=== PATIENT | male | born 1980 | race Caucasian/White ===

== ENCOUNTER 2017-06-16 11:40 | Emergency (ER) | payer OTHER ==
[~2017-06-16] VITALS: Ht 175.3 cm; Wt 79.4 kg
[~2017-06-16 11:40] MED LIST: ACET500 PO; AMOX500 PO; AMOX875 PO; AZIT500 PO; CARB10OTL BOTHEARS; CEPH500 PO; CITA20 PO; CLOT10; CODACE30 PO; CRUTCH3 USE; CYCL10 PO; Cleocin HCl300 MG PO; Clindamycin HC150 MG PO; FLUC100 PO; FLUC150A PO; FLUC200 PO; HYDACE5; HYDACE5 PO; HYDHCL25 PO; IBUP200; IBUP600 PO; LIDO2L MM; META800 PO; METPRE4DP PO; METTREX2.5 PO; NAPR500 PO; NAPR550 PO; NYST100SU MT; NYST237S MT; Naprosyn500 MG PO; Norco 5-325 Ta1 EACH PO; OXYACE5T PO; PENVK500 PO; PRED10 PO; PRED20 PO; Prednisone10 MG PO; Prednisone20 MG PO; RXCLIN PO; RXOXYACE PO; TRAM50 PO; Ultram50 MG PO; VARE1 PO; Veetids 500500 MG PO; Zithromax250 MG PO
[2017-06-16] MEDS ORDERED: IBUP800 PO (12:35)
[2017-06-16] MEDS ORDERED: PENVK500 PO (12:37)
[2017-10-14] MEDS ORDERED: KETO10 PO (19:48)
[2018-05-06] MEDS ORDERED: Norco 5-325 Ta1 EACH PO (19:14)
== END 2017-06-16 12:50 | disposition home or self-care (01) ==
LOC: ER 11:40
DX: K02.9 Dental caries, unspecified (principal); K03.81 Cracked tooth; F17.200 Nicotine dependence, unspecified, uncomplicated; Z79.2 Long term (current) use of antibiotics
CPT/HCPCS: 99283

== ENCOUNTER 2017-08-31 13:06 | Emergency (ER) | payer OTHER ==
[~2017-08-31] VITALS: Ht 175.3 cm; Wt 79.4 kg
[~2017-08-31 13:06] MED LIST changes: +IBUP800 PO
[2017-08-31] MEDS ORDERED: CYCL10 PO ×2 (14:31→14:50)
[2017-08-31] MEDS ORDERED: Norco 5-325 Ta1 EACH PO (14:50)
[2017-08-31] MEDS ORDERED: NAPR550 PO (14:50)
== END 2017-08-31 14:58 | disposition home or self-care (01) ==
LOC: ER 13:06
DX: M54.5 Low back pain (principal); F17.210 Nicotine dependence, cigarettes, uncomplicated; Z79.899 Other long term (current) drug therapy
CPT/HCPCS: 96372; 99283; J1885

== ENCOUNTER 2017-10-11 11:34 | Emergency (ER) | payer OTHER ==
[~2017-10-11] VITALS: Ht 175.3 cm; Wt 79.4 kg
[2017-10-11] MEDS ORDERED: Ultram50 MG PO (12:49)
[2017-10-11] MEDS ORDERED: NAPR550 PO (12:49)
[2017-10-11] MEDS ORDERED: CYCL10 PO (12:49)
[2017-10-11] MEDS ORDERED: Voltaren100 GM TOP (12:49)
[2017-10-14] MEDS ORDERED: KETO10 PO (19:48)
== END 2017-10-11 12:58 | disposition home or self-care (01) ==
LOC: ER 11:34
DX: M54.5 Low back pain (principal); Z79.899 Other long term (current) drug therapy; F17.210 Nicotine dependence, cigarettes, uncomplicated
CPT/HCPCS: 72100; J1885

== ENCOUNTER → 2018-01-02 | Outpatient (CLI) | payer OTHER ==
[~2018-01-02] MED LIST changes: +KETO10 PO; +Voltaren100 GM TOP
== END | disposition home or self-care (01) ==
LOC: LAB SHORT 17:02 → LAB 17:02
DX: J02.9 Acute pharyngitis, unspecified (principal)
CPT/HCPCS: 87070

== ENCOUNTER 2019-01-04 23:53 | Emergency (ER) | payer OTHER ==
[~2019-01-04] VITALS: Ht 175.3 cm; Wt 77.1 kg
[2019-01-05] MEDS ORDERED: Cleocin HCl300 MG PO (01:04)
[2019-01-05] MEDS ORDERED: Acetaminophen-1 EAC1 PO (01:04)
== END 2019-01-05 01:27 | disposition home or self-care (01) ==
LOC: ER 23:53
DX: K08.89 Other specified disorders of teeth and supporting structures (principal); F17.200 Nicotine dependence, unspecified, uncomplicated
CPT/HCPCS: 99282

== ENCOUNTER 2019-01-05 07:30 | Emergency (ER) | payer OTHER ==
[~2019-01-05] VITALS: Ht 175.3 cm; Wt 77.1 kg
[~2019-01-05 07:30] MED LIST changes: +Acetaminophen-1 EAC1 PO
== END 2019-01-05 07:58 | disposition home or self-care (01) ==
LOC: ER 07:30
DX: K02.9 Dental caries, unspecified (principal); F17.200 Nicotine dependence, unspecified, uncomplicated; Z79.899 Other long term (current) drug therapy
CPT/HCPCS: 99282

== ENCOUNTER 2019-12-15 19:55 | Emergency (ER) | payer OTHER ==
[~2019-12-15] VITALS: Ht 175.3 cm; Wt 77.1 kg
[~2019-12-15 19:55] MED LIST changes: +CIPR500 PO; +Flomax0.4 MG PO; +Norco 7.5-3251 EACH PO; +TAMSULOSIN HCL0.4 M1 PO
[2019-12-15 21:55] LABS: BASOPHILS ABSOLUTE AUTO 0.09 K/mm3 (0.00-0.23); BASOPHILS PERCENT AUTO 1 % (0-2); EOSINOPHILS PERCENT AUTO 2 % (0-6); Hematocrit 50.7 % (37.0-53.0); Hemoglobin 16.9 g/dL (13.5-17.5); IMMATURE GRAN ABSOLUTE AUTO 0.05 K/mm3 (0.00-0.10); IMMATURE GRAN PERCENT AUTO 0 % (0-1); LYMPHOCYTES ABSOLUTE AUTO 3.11 K/mm3 (0.84-5.20); LYMPHOCYTES PERCENT AUTO 24 % (21-46); MONOCYTES PERCENT AUTO 6 % (4-13); Mean Corpuscular HGB 30.5 pg (26.0-34.0); Mean Corpuscular HGB Conc 33.3 g/dL (31.5-36.5); Mean Corpuscular Volume 92 fL (80-100); Mean Platelet Volume 10.7 fL (9.1-12.4); NEUTROPHILS ABSOLUTE AUTO 8.69 K/mm3 (1.96-9.15); NEUTROPHILS PERCENT AUTO 68 % (41-73); Platelet Count 305 K/mm3 (150-400); RDW Coefficient Variation 11.9 % (11.7-14.2); RDW Standard Deviation 40.3 fL (35.1-46.3); Red Blood Cell Count 5.54 M/mm3 (4.30-5.90); White Blood Cell Count 12.84 K/mm3 (4.00-11.30)
[2019-12-15 22:12] LABS: Alanine Aminotransfer (ALT/SGP 30 U/L (12-78); Albumin, Blood 4.6 g/dL (3.4-5.0); Albumin/Globulin Ratio 1.2 (0.8-1.8); Alk Phos 76 U/L (50-136); Anion Gap 7 mmol/L (6-16); Aspartate Aminotrans (AST/SGOT 21 U/L (12-37); Bilirubin, Total 0.4 mg/dL (0.1-1.0); Blood Urea Nitrogen 15 mg/dL (8-24); Bun/Creatinine Ratio 11.5 (12.0-20.0); CO2, Blood 24 mmol/L (21-32); Calcium, Blood 9.4 mg/dL (8.5-10.1); Chloride, Blood 105 mmol/L (98-108); Glomerular Filtration Rate >60 (60-); Glucose, Blood 84 mg/dL (70-99); Potassium, Blood 3.9 mmol/L (3.5-5.5); Sodium, Blood 136 mmol/L (136-145); Total Protein, Blood 8.6 g/dL (6.4-8.2)
[2019-12-16 00:23] LABS: Source, Urine Clean Catch
[2019-12-16 00:25] LABS: Bilirubin, Urine Neg (Neg); Blood, Urine 4+ (Neg); Color, Urine Amber (P-Yellow); Glucose Qualitative, Urine Neg (Neg); Ketones, Urine 1+ (Neg); Leukocyte Esterase, Urine Neg (Neg); Nitrite, Urine Neg (Neg); Protein, Urine 1+ (Neg); Urobilinogen, Urine 1+ (Normal)
[2019-12-16 00:31] LABS: Appearance, Urine Hazy (Clear); White Blood Cells, Urine 0-2 /hpf (0-5)
[2019-12-16 00:32] LABS: Bacteria Mod /hpf; Calcium Oxalate Crystals Many /hpf; Mucus Light (0-Heavy); Squamous Epithelial Cells Not Seen /hpf (Few)
[2019-12-16] MEDS ORDERED: OXYB5 PO (00:58)
[2019-12-16] MEDS ORDERED: Norco 5-325 Ta1 EACH PO (00:58)
== END 2019-12-16 02:15 | disposition home or self-care (01) ==
LOC: ER 19:55
PROVIDERS: Physician Assistant
DX: R30.0 Dysuria (principal); F17.200 Nicotine dependence, unspecified, uncomplicated; Z79.899 Other long term (current) drug therapy
CPT/HCPCS: 74176; 80053; 81001; 83690; 85025; 87086; 96361; 96374; 96375; 99283; 99283-25; J1885; J2060; J7030

== ENCOUNTER 2020-01-05 23:24 | Emergency (ER) | payer OTHER ==
[~2020-01-05] VITALS: Ht 175.3 cm; Wt 72.6 kg
[~2020-01-05 23:24] MED LIST changes: +OXYB5 PO
[2020-01-06 00:42] LABS: BASOPHILS ABSOLUTE AUTO 0.05 K/mm3 (0.00-0.23); BASOPHILS PERCENT AUTO 0 % (0-2); EOSINOPHILS ABSOLUTE AUTO 0.09 K/mm3 (0.00-0.68); EOSINOPHILS PERCENT AUTO 1 % (0-6); Hematocrit 40.4 % (37.0-53.0); Hemoglobin 13.8 g/dL (13.5-17.5); IMMATURE GRAN ABSOLUTE AUTO 0.05 K/mm3 (0.00-0.10); IMMATURE GRAN PERCENT AUTO 0 % (0-1); LYMPHOCYTES ABSOLUTE AUTO 2.05 K/mm3 (0.84-5.20); LYMPHOCYTES PERCENT AUTO 17 % (21-46); MONOCYTES ABSOLUTE AUTO 0.85 K/mm3 (0.16-1.47); MONOCYTES PERCENT AUTO 7 % (4-13); Mean Corpuscular HGB 30.8 pg (26.0-34.0); Mean Corpuscular HGB Conc 34.2 g/dL (31.5-36.5); Mean Corpuscular Volume 90 fL (80-100); Mean Platelet Volume 10.7 fL (9.1-12.4); NEUTROPHILS ABSOLUTE AUTO 9.11 K/mm3 (1.96-9.15); NEUTROPHILS PERCENT AUTO 75 % (41-73); Platelet Count 256 K/mm3 (150-400); RDW Coefficient Variation 11.9 % (11.7-14.2); RDW Standard Deviation 39.5 fL (35.1-46.3); Red Blood Cell Count 4.48 M/mm3 (4.30-5.90)
[2020-01-06 01:04] LABS: Alanine Aminotransfer (ALT/SGP 24 U/L (12-78); Albumin, Blood 3.5 g/dL (3.4-5.0); Albumin/Globulin Ratio 0.9 (0.8-1.8); Alk Phos 93 U/L (50-136); Anion Gap 7 mmol/L (6-16); Aspartate Aminotrans (AST/SGOT 13 U/L (12-37); Bilirubin, Total 0.5 mg/dL (0.1-1.0); Blood Urea Nitrogen 11 mg/dL (8-24); Bun/Creatinine Ratio 13.1 (12.0-20.0); CO2, Blood 26 mmol/L (21-32); Calcium, Blood 8.8 mg/dL (8.5-10.1); Chloride, Blood 106 mmol/L (98-108); Creatinine, Blood 0.84 mg/dL (0.60-1.20); Globulin, Blood 3.7 g/dL (2.2-4.0); Glomerular Filtration Rate >60 (60-); Glucose, Blood 138 mg/dL (70-99); Potassium, Blood 3.2 mmol/L (3.5-5.5); Sodium, Blood 139 mmol/L (136-145); Total Protein, Blood 7.2 g/dL (6.4-8.2)
== END 2020-01-06 01:59 | disposition home or self-care (01) ==
LOC: ER 23:24
PROVIDERS: Emergency Medicine
DX: F15.10 Other stimulant abuse, uncomplicated (principal); R41.3 Other amnesia; F17.200 Nicotine dependence, unspecified, uncomplicated
CPT/HCPCS: 36415; 80053; 85025; 93005; 93010; 96374; 99284-25; J2060

== ENCOUNTER 2022-04-02 09:46 | Emergency (ER) | payer OTHER ==
[~2022-04-02] VITALS: Ht 175.3 cm; Wt 79.4 kg
[2022-04-02] MEDS ORDERED: AMOCLA875 PO ×2 (10:26→11:38)
== END 2022-04-02 10:27 | disposition home or self-care (01) ==
LOC: ER 09:46
DX: K04.7 Periapical abscess without sinus (principal); F17.210 Nicotine dependence, cigarettes, uncomplicated
CPT/HCPCS: 99282